=== PATIENT | male | born 2005 | race Caucasian/White ===

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

== ENCOUNTER 2025-03-15 16:21 | Emergency (ER) | payer SELFPAY ==
[2025-03-15 16:24] VITALS: BP 120/60; PULSE 100; RESP 18; TEMP 36.6; O2SAT 99; BMI 25.8
--- NOTE | 2025-03-15 16:24 | ED_ITS ---
HPI - General Adult General Chief complaint: General Medical Stated complaint: Withdrawls methadone Time Seen by Provider: 03/15/25 16:25 History of Present Illness ED Provider: Jackie Blas NP HPI narrative: 19-year-old male history of opiate use disorder, bipolar 1 currently on methadone provided by the [facility], presents to the ED for evaluation reporting withdrawal from methadone. Patient reports that his last dose was on 03/13/25. He has missed 2 doses due to lack of transportation. Reports feeling generally unwell due to lack of medication. No CP, SOB, abdominal pain, n/v/d/c, fever, chills. Related Data Home Medications ?Medication ?Instructions ?Recorded ?Confirmed methadone 10 mg/mL oral 140 mg PO DAILY 03/15/25 concentrate (Methadone Intensol) Allergies Allergy/AdvReac Type Severity Reaction Status Date / Time No Known Allergies Allergy Verified 03/15/25 16:27 Review of Systems Review of Systems: ROS is otherwise negative unless mentioned in HPI. [facility] Past Medical History Medical History (Updated 03/15/25 @ 17:22 by Jackie Blas, [facility]) Bipolar 1 disorder Social History Social History Alcohol intake: never Substance Use Type: Marijuana Do you have a plan to hurt others: No Plan Physical Exam ED Exam Exam: Nursing notes and vital signs reviewed. Constitutional: Well-appearing, NAD. Alert. Oriented X3. Eyes: EOMI. ENT: Pharynx normal. Neck: Normal inspection. Neck supple. CVS: Normal heart rate and rhythm. Pulses normal. Respiratory: No respiratory distress. Breath sounds normal. Abdomen: Nondistended. Skin: Skin warm and dry. Normal skin color. Extremities: No lower extremity edema. Neuro: Oriented X 3. No motor deficit. Vital Signs: Vital Signs - 24 hr 03/15/25 16:24 Temperature 98 F Pulse Rate 100 Respiratory Rate 18 Blood Pressure 120/60 Pulse Oximetry 99 Oxygen Delivery Method Room Air BMI result Body Mass Index 25.8 Medications Administered Discontinued Medications Generic Name Dose Route Start Last Admin Trade Name Freq PRN Reason Stop Dose Admin Methadone HCl 140 mg 03/15/25 16:39 03/15/25 17:19 Methadone Hcl 20 Mg/2 Ml Oral.Conc PO 03/15/25 16:40 140 mg ONCE ONE Administration Medical Decision Making Medical Decision Making MDM Narrative: Patient typically receives his methadone dose, which he reports as 140 mg, from the [facility]. Missed 2 doses, yesterday, today. Reports this was because he did not have transportation to the facility, and they are close on weekends. Plan to verify the dose, administer the dose, and likely discharge to home. 4:39 PM-- Dose of 140 mg was confirmed by nursing staff. I have ordered the dose here. will administer in the ED and plan for d/c. Differential Diagnosis Differential Diagnoses: The differential diagnosis associated with the presentation includes methadone w/d, methadone dosing Admission/Observation Consideration of admission/observation: Escalation of care including admission/observation considered (Not indicated) External Record Review External record reviewed: Outside ED record Discharge Plan Discharge Clinical Impression: Methadone dependence, Encounter for medication administration Patient Disposition: Home, Self-Care Instructions: Opioid Use Disorder (ED) Additional Instructions: As we discussed, you were seen in the ER today for evaluation, requesting your methadone dose. We gave you your methadone dose of 140 mg in the ER today. Please follow up with your regular methadone clinic. Return to the ER if any worsening complaints. Opiate use disorder You were seen in our Emergency Department today for treatment of opiate use disorder. You may have been dosed with medication for opiate use disorder (MOUD) in the form of suboxone or methadone. You may experience feeling some withdrawal symptoms and this is normal. The? dose in the Emergency Department is a starting dose and meant to be titrated up once you follow up with a clinic. Please do not feel discouraged, it is a process. The nurse has reviewed with you where to follow up and what information to bring with you, to continue treatment. You also may have been given naloxone (narcan) to take home with you. This medication is used to potentially treat opiate overdose. If you decide you want to stop or cut down on how much you?re using, you can call or walk into our outpatient Addiction Treatment office: [facility] (M-F 9am-5p) [address], [address] [phone] You may have been provided with safer injection?items, please take time to take care of YOU and your health. Use new supplies whenever possible to lessen the chances of infections and other illnesses.? ?If you need more supplies, please go [facility],? [address] [place], [place] you can call or text to coordinate delivery of safer supplies. You were also provided a list of several treatment providers in the area.? If you experience any worsening symptoms you cannot control please return to the ED or call 911. Please follow up at your next appointment. Things to look out for are fevers, chest pain, shortness of breath, severe pain, dizziness, fainting or any other concerns. Prescriptions: No Action methadone [Methadone Intensol] 10 mg/mL Concentrate 140 mg PO DAILY Referrals: [facility] [Provider Group, Family Practice] Print Language: French
--- NOTE | 2025-03-15 16:48 | HE.PHANOTE ---
Methadone verification form received, patient goes to [facility], dose is 140 mg and last dose was taken 03/12
[2025-03-15] MEDS: methADONE HCl 20 MG/2 ML ORAL.CONC 140 MG PO (17:19)
[2025-03-15 17:33] VITALS: BP 120/60; PULSE 100; RESP 18; TEMP 36.6; O2SAT 99
--- OUTSIDE RECORDS SUMMARY | 2025-03-15 17:38 | XMS_ITS | Encounter Summary ---
Author Organization [facility] Address [address] [place] [phone] Phone Care Team Providers Care Plans Examiner Name Role Phone Kim Carranza NP Primary Care Provider [phone] Encounter Details Date Type Department Care Team (Late st Contact Info) Description 12/16/2009 Documentation [facility] Family Medicine [address] [place] [address] Family Medicine, Physician [address] [place], [place] [id number] Social History Tobacco Use Types Packs/Day Years Used Date Smoking Tobacco: Never Assessed Sex and Gender Information Value Date Recorded Sex Assigned at Male 04/08/2020 5:12 PM EST Legal Sex Male 5:22 PM EDT Gender Identity Male 04/08/2020 5:12 PM EST Sexual Orientation Straight 12/30/2018 11 :22 AM EDT documented as of this encounter Plan of Treatment Not on file documented as of this encounter Visit Diagnoses Not on filedocumented in this encounter Care Teams Plans Examiner Relationship Specialty Start Date End Date Kim Carranza NP [address] [place] [address] PCP - General Pediatrics 08/21/24 documented as of this encounter
--- OUTSIDE RECORDS SUMMARY | 2025-03-15 17:38 | XMS_ITS | Clinical Summary ---
Author Organization [facility] Address [address] [place] [phone] Phone Care Team Providers Care Lead Section Supervisor Name Role Phone Kim Carranza NP Primary Care Provider [phone] Allergies No known active allergies Medications amphetamine-dextro amphetamine XR (Adderall XR) 15 MG 24 hr capsuleIndications :Attention deficit hyperactivity disorder (ADHD), combined type Take 1 capsule (15 mg total) by mouth every morning. 30 capsule 3 Active benzoyl peroxide 5 % gelIndications:Acn e vulgaris Apply q am 30 g 3 3 Active clindamycin 1 % gelIndications:Acn e vulgaris Apply qam 30 g 3 3 Active Ketoconazole-[place] cortisone (Pheyo) 2-2.5 % creamIndications:T inea versicolor APPLY TWICE A DAY TO SPOTS ON UPPER BACK 67.7 g 3 3 Active Active Problems Problem Noted Date Diagnosed Date Drug abuse 04/19/2022 Overview (04/19/2022): Am worried about other drug abuse ?narcotic. No track walker, pupils constricted, speech slowed. Refused to admit any drug use, refuses urine tox screen, had him see Bryan who agrees with dx but says he does not want any rx, left office immediately after. Assessment & Plan (04/19/2022 6:24 PM EST): Am very concerned, called mom because I think he is at risk for his health and safety. He refused to talk to drug counselor, mom says she is talking to his chief media officer. Mom is 100% sure he is on other drugs. Urged mom to talk to the chief media officer and DCF. Will also talk with our [facility]. Juvenile delinquency 03/29/2022 Overview (03/29/2022): Was arrested, does not say why Assessment & Plan (03/29/2022 10:02 AM EST): Court date today. Weight loss 03/29/2022 Overview (03/29/2022): From ?lack of appetite from pot use, rule out other cause of increased metabolic disease, excessive losses, Assessment & Plan (03/29/2022 10:03 AM EST): See labs. Counseled to eat three meals a day Marijuana abuse 03/29/2022 Overview (04/19/2022): Regular pot smoker, denies other drugs, denies being high here. 04/19/22: I am certain that he high here. Was nodding off. Assessment & Plan (04/19/2022 6:26 PM EST): Has used as a gateway drugs. Assessment & Plan (03/29/2022 9:09 PM EST): Counseled re motivation to decrease, said can affect attention, and will only rx adderall if will address with me and therapist here. Tinea versicolor 03/29/2022 Overview (03/29/2022): On upper back Assessment & Plan (03/29/2022 10:05 AM EST): Will prescribe ketoconozole. COVID-19 vaccine series declined 03/29/2022 Assessment & Plan (03/29/2022 10:17 AM EST): I encourage you to have him get the covid vaccine Current moderate episode of major depressive disorder without prior episode 03/29/2022 Overview (03/29/2022): Seems depressed and meets criteria for depression. Assessment & Plan (04/19/2022 6:25 PM EST): I feel is depressed as well. Is self treating with drugs. Assessment & Plan (03/29/2022 9:13 PM EST): Made warm handoff with Dr. Luna who met with patient and arranged f/u High risk sexual behavior in adolescent 03/15/20 Overview (03/17/2021): 10/2019: GC and Chlamydial infection Pt now a father, of his first child 03/2020: GC and Chlamydia +, Azithro and IM Ceftriaxone here Assessment & Plan (03/29/2022 10:02 AM EST): Now a father, should use condoms to prevent further pregnancies Psychosocial stressors 08/20/2020 Overview (03/29/2022): Active 51A- 08/20/20 Update given to Mally ward [facility] 03/02/21 Now is a single father, out of school, presently unemployed Assessment & Plan (03/29/2022 9:09 PM EST): Addressed stressors School failure 04/08/2020 Overview (04/08/2020): 04/15 - failing at least two classes and not attending virtual classes. He may go to an alternate program. Assessment & Plan (03/29/2022 9:11 PM EST): Dropped out of school Assessment & Plan (04/08/2020 4:47 PM EST): Hopefully will be referred to an alternate program. Acne vulgaris 12/30/2018 Overview (03/29/2022): 01/11 - Using benzoyl peroxide and tretinoin. On lower back Assessment & Plan (03/29/2022 9:11 PM EST): Counseled re creams for lower back. Refused influenza vaccine 12/30/2018 Overview (03/15/2021): 2017, 2018, 2019 but done 03/2020 ADHD (attention deficit hyperactivity disorder) 04/26/2015 Overview (03/15/2021): Historically managed by [facility] team - therapist and Rx prescriber Kriss Underwood, Concerta 2017, Daytrana patch 2018 Assessment & Plan (04/19/2022 6:25 PM EST): Clearly has ADHD but I can't give him adderall now that he is high. Assessment & Plan (03/29/2022 9:11 PM EST): Will restart adderall but only if: You see a therapist here and a drug counselor, and come for follow ups. Warned against diversions. Encounters Date Type Department Care Team Description 03/02/2025 Telephone [facility] - [address] [id number] Kayley Cerna LPN Discharge Follow-Up - ED from Last 3 Months Immunizations Immunization Administration Dates Next Due DTaP / Hep B / IPV 04/27/2005,01/10/2005, 005 DTaP 5 04/13/2009,04/02/2006 HPV Vaccine 9 Valent 12/28/2017,05/29/2016 Hep A, ped/adol 12/27/2006,04/02/2006 Hep B, ped/adol 2004 Hib (HbOC) 01/10/2005,2004 Hib (PRP-T) 04/27/2005 IPV 04/13/2009 Influenza, injectable, quadrivalent 04/26/2015 Influenza, injectable, quadr ivalent, preservative free 04/08/2020 Influenza, injectable, trivalent 12/27/2006,10/2006,04/27/2005 Influenza, intranasal, quadrivalent 01/22/2014,1 MMR 04/13/2009,09/05/2005 Meningococcal Conj (Menactra) MCV4P 05/29/2016 Pneumococcal Conjugate 04/27/2005,01/10/2005,10/2004 Tdap 05/29/2016 Varicella 04/13/2009,09/05/2005 Family History Medical History Relation Name Comments No Known Problems Brother phyllis No Known Problems Father haylie No Known Problems Half-Sister ena No Known Problems Mother Diabetes Other No Known Problems Sister 1 yumiko No Known Problems Sister 2 arpita Relation Name Status Comments Brother phyllis Alive Father haylie Alive Father: Unknown Half-Sister ena Alive Mother Alive Mother: Alive a nd well Other No family histo ry of Deafness, No family history of Cancer, No family history of *Heart Disease, No family history of Migraines, No family history of Diabetes mellitus, No family history of Asthma, No family history of Obesity, No family history of Hyperlipidemia, No family history of Strabismus, No family history of Developmental dislocation of hip, No family history of *CVA/Stroke, Family history of ADD/ADHD, No family history of Seizure disorder Sister 1 yumiko Alive Sister: Alive a nd well, Asthma Sister 2 arpita Alive Half sister (M) : Alive and well Social History Tobacco Use Types Packs/Day Years Used Date Smoking Tobacco: Never Smokeless Tobacco: Never Alcohol Use Standard Drinks/Week Comments No 0 (1 standard drink = 0.6 oz pur e alcohol) Hunger/Food Answer Date Recorded In the last 12 months, did y ou or your family ever eat less than you felt you should because there wasn't enough money for food? No 03/29/2022 Stable Housing Answer Date Recorded Are you worried that in the next 2 months you may not have stable housing? No 03/29/2022 Transportation Concerns Answer Date Rec orded In the last 12 months, have you or your family ever had to go without healthcare because you didn't have a way to get there? No 03/29/2022 Hazards in Home Answer Date Recorded Think about the place you li ve. Do you have problems with any of the following? Pests (mice or roaches), mold, no/not working smoke detectors, water leaks, no window guards. No 2022 Financing Utilities Answer Date Recorde d In the last 12 months, has t he electric, gas, oil, or water company threatened to shut off your services in your home? No 03/29/2022 Safety at Home Answer Date Recorded Are you or your family worried about feeling saf e in your home? No 03/29/2022 Outside Support Answer Date Recorded Do you feel that you need mo re support from other people or programs to help you care for yourself or your family? No 03/29/2022 Understanding Health Concerns Answer Da te Recorded Do you need help understandi ng your or your child's healthcare needs (diagnosis, medications, plan, etc.)? No 03/29/2022 Financing Health Concerns Answer Date R ecorded In the last 12 months, was t here a time when your child needed to see a doctor or get medications or supplies but could not because of cost? No 03/29/2022 Missing School or Work Answer Date Radu rded Did you or your child miss s chool or work because of a health problem that could have been avoided? No 03/29/2022 Sex and Gender Information Value Date Recorded Sex Assigned at Male 04/08/2020 5:12 PM EST Legal Sex Male 5:22 PM EDT Gender Identity Male 04/08/2020 5:12 PM EST Sexual Orientation Straight 12/30/2018 11 :22 AM EDT Last Filed Vital Signs Vital Sign Reading Time Taken Comments Blood Pressure 108/64 03/29/2022 9:27 AM EST Pulse 90 03/29/2022 9:27 AM EST Temperature 36.6 C (97.8 F) 04/19/2022 8:43 AM EST Respiratory Rate - - Oxygen Saturation - - Inhaled Oxygen Concentration - - Weight 72.6 kg (160 lb) 04/19/2022 8:43 AM EST Height 179.1 cm (5' 10.5 ) 03/29/2022 9:27 AM ES T Body Mass Index - - Plan of Treatment Health Maintenance Due Date Last Done Comments Men B Vaccine (1 of 2 - Standard) 2020 Meningococcal Vaccine (2 - 2-dose series) 2020 05/29/2016 HIV Screening 03/16/2022 03/16/2021, 11/18/2019 Syphilis Screening (consider for higher risk patients) 03/16/2022 03/16/2021, 11/18/2019 Chlamydia and Gonorrhea Screening 03/26/2024 03/29/2022, 03/16/2021, 02/18/2020, Additional history exists Influenza Vaccines (#1) 2024 04/08/19 21, 04/26/2015, 01/22/2014, Additional history exists COVID-19 Vaccine ( - 2024- season) 2024 DTaP,Tdap,and Td Vaccines (7 - Td or Tdap) 05/29/2026 05/29/2016, 04/13/2009, 04/02/2006, Additional history exists HIB Vaccines Aged Out 04/27/2005, 12/24, 2004 No longer eligible based on patient's age to complete this topic Hepatitis B Vaccines Completed 04/27/2005, 01/10/2005, 2004, Additional history exists Pneumococcal Vaccine Aged Out 04/27/2005, 01/10/2005, 2004 No longer eligible based on patient's age to complete this topic Hepatitis A Vaccines Completed 12/27/2006, 04/02/19 07 IPV Vaccines Completed 04/13/2009, 04/2005, 01/10/2005, Additional history exists MMR Vaccines Completed 04/13/2009, 09/05/2005 Varicella Vaccines Completed 04/13/2009, 09/05/2005 HPV Vaccines Completed 12/28/2017, 05/29/2016 Hepatitis C Screening Completed 03/16/2021, 020 Procedures * Due to [place] Tripl law, this organization might not be sharing sensitive test results. Procedure Name Priority Date/Time Associated Diagnosis Comments CHLAMYDIA AND GONORRHEA, AMPLIFIED Routine 03/29/2022 10:24 AM EST Encounter for screening examination for chlamydial infection RPR Routine 03/16/2021 12:20 PM EST High risk sexual behavior in adolescent HEPATITIS C ANTIBODY WITH REFLEX TO HCV, RNA, QUANT, RT PCR Routine 03/16/2021 12:20 PM EST High risk sexual behavior in adolescent from Last 3 Months or Most Recently Relevant to Health Maintenance Results * Due to [place] law, this organization might not be sharing sensitive test results. * (ABNORMAL) Chlamydia and Gonorrhoea, Amplified (03/29/2022 10:24 AM EST) Chlamydia Trachomatis, DNA Probe POSITIVE( A) (NEG) [facility] Comment: Chlamydia Trachomatis RNA detected in this patient's sample (REFERENCE RANGE/NORMAL VALUE: NOT DETECTED) Result reported to the [facility]. Note: This test uses lodge officer- mediated amplification method to detect rRNA from C. Trachomatis URINE GC AMP PROBE POSITIVE( A) (NEG) [facility] Comment: Neisseria Gonorrhoeae RNA detected in this patient's sample (REFERENCE RANGE/NORMAL VALUE: NOT DETECTED) Result reported to the [facility]. NOTE: This test uses lodge officer-mediated amplification method to detect rRNA from N.Gonorrhoeae. A negative result does not preclude infection. In the case of a negative urine result, testing of an endocervical(female) or urethral (male) specimen is recommended if there is high clinical suspicion of infection. Due to very high sensitivity of Nucleic Acid Amplification Test, false positive results may occur. Therefore, specimen handling is extremely important. In patients in whom the disease is unlikely, additional sample for testing should be considered after an initial positive result. The performance characteristics of this test have not been evaluated in children. The Aptima Combo2 assay is not intended for the evaluation of suspected sexual abuse or for other medico-legal indications. The ordering provider should assess if the patient had consensual sex without risk of sexual abuse. Consult the [facility] if needed. Contact phone number . Therapeutic failure or success cannot be determined with the Aptima Combo2 assay since nucleic acid may persist following appropriate antimicrobial therapy. The Centers for Disease Control and Prevention (CDC) recommends confirmatory retesting using culture or a different nucleic acid amplification test when positive results occur, if indicated. Testing performed or reported by [facility], a Service of [facility], [address], [place] [address] Pedro Carlson MD, Real Estate Sales Supervisor [facility]# [id number] Urine (Urine) 03/29/2022 10: 24 AM EST 03/30/2022 9:04 AM EST us Raffi Willams MD LAB MICROBIOLOGY - GENERAL OR DERABLES Final Result [facility] * Hepatitis C Antibody (03/16/2021 12:20 PM EST) Hepatitis C Ab Interpretation NEGATIVE (NEG) [facility] Comment: Reference range: Negative This test was performed on the [employer] Worker immunoassay system. Testing performed or reported by [facility], a Service of [facility], [facility] [place] [address] Pedro Carlson MD, Real Estate Sales Supervisor [facility]# [id number] Blood 03/16/2021 12:2 0 PM EST 03/16/2021 12:26 PM EST Ena Benson MD LAB BLOOD ORDERABLES Final Re sult Performing Organization Address [facility] Number [facility] * RPR (03/16/2021 12:20 PM EST) Pathologist [facility] SYPHILIS SCREEN BY DOROTEO NEGATIVE (NEG) [facility] Comment: Reference range: Negative This test was performed on the [employer] Worker immunoassay system. RPR Titer NOT INDICATED [facility] T pallidum Antibodies (TP-PA) NOT INDICATED [facility] SYPHILIS INTERPRETATION Indicative of the absence of infection with Treponemal pallidum. Test may be negative in cases of incubating or early primary syphilis. Consider repeat testing in several weeks if clinical suspicion is high. [facility] Comment: Testing performed or reported by [facility], a Service of [facility], [address] [place] [address] Pedro Carlson MD, Real Estate Sales Supervisor [facility]# [id number] Blood (Blood, Venous) 03/16/2021 12:20 PM EST 03/16/2021 12:26 PM EST Ena Benson MD LAB BLOOD ORDERABLES Final Re sult Performing Organization Address [facility] de Phone Number [facility] from Last 3 Months or Most Recently Relevant to Health Maintenance Insurance [facility] [place] [id number] [facility] [place] [address] Care Teams Lead Section Supervisor Relationship Specialty Start Date End Date Kim Carranza NP [address] [place] [address] PCP - General Pediatrics 08/21/24
--- OUTSIDE RECORDS SUMMARY | 2025-03-15 17:38 | XMS_ITS | Clinical Summary ---
Author Organization [employer] [facility] it Address [address] [place] [address] Care Team Providers Care Post Graduate Intern Name Role Phone Unavailable Primary Care Provider Unavailabl e Social History Tobacco Use Types Packs/Day Years Used Date Smoking Tobacco: Never Assessed Sex and Gender Information Value Date Recorded Sex Assigned at Not on file Legal Sex Male 9:10 PM EST Gender Identity Not on file Sexual Orientation Not on file Plan of Treatment Health Maintenance Due Date Last Done Comments Varicella Vaccines (1 of 2 - 13+ 2-dose series) 2017 HPV Vaccines (1 - Male 3-dos e series) 08/27/2019 Meningococcal B Vaccine (1 o f 2 - Standard) 2020 Annual Well Child Visit (3-2 1 years old) 04/20/2023 HIV Screening 04/20/2023 Hepatitis C Screening 04/20/2023 Social Influencers of Health Screening 04/20/2023 DTaP,Tdap,and Td Vaccines (1 - Tdap) 08/27/2023 Hepatitis B Vaccines (1 of 3 - 19+ 3-dose series) 08/27/2023 Depression Screening 03/26/2024 COVID-19 Vaccine (1 - 2024-2 6 season) 2024 Influenza Vaccine (#1) 2024 RSV Immunization Adult Patie nts (1 - 1-dose 75+ series) 08/27/2079 HIB Vaccines Aged Out No longer eligi ble based on patient's age to complete this topic Hepatitis A Vaccines Aged Out No long er eligible based on patient's age to complete this topic IPV Vaccines Aged Out No longer eligi ble based on patient's age to complete this topic MMR Vaccines Aged Out No longer eligi ble based on patient's age to complete this topic Meningococcal ACWY Vaccine Aged Out N o longer eligible based on patient's age to complete this topic Pneumococcal Vaccine: Pediat rics (0 to 5 Years) and At-Risk Patients (6 to 49 Years) Aged Out No longer eligible b ased on patient's age to complete this topic RSV Immunization Patients Un jyoti 20 months Aged Out No longer eligible b ased on patient's age to complete this topic
--- OUTSIDE RECORDS SUMMARY | 2025-03-15 17:38 | XMS_ITS | Encounter Summary ---
Author Organization [facility] Address [address] [place] [id number] Phone Care Team Providers Care Head Bellhop Captain Name Role Phone Kim Carranza NP Primary Care Provider [phone] Encounter Details Date Type Department Care Team (Late st Contact Info) Description 11/09/2016 Conversion Encounter [facility] [address] [place] [address] Social History Tobacco Use Types Packs/Day Years [...] on filedocumented in this encounter Care Teams Head Bellhop Captain Relationship Specialty Start Date End Date Kim Carranza NP [address] [place] [address] PCP - General Pediatrics 08/21/24 documented as of this encounter
--- OUTSIDE RECORDS SUMMARY | 2025-03-15 17:38 | XMS_ITS | Encounter Summary ---
Author Organization [facility] Address [address] [place] [address] Phone Care Team Providers Care School Photographer Name Role Phone Kim Carranza NP Primary Care Provider [phone] Encounter Details Date Type Department Care Team (Late st Contact Info) Description 12/16/2009 Documentation [facility] Family Medicine [address] [place] [address] Family Medicine, Physician [address] [place], [place] [id number] Social History Tobacco Use Types Packs/Day Years [...] on filedocumented in this encounter Care Teams School Photographer Relationship Specialty Start Date End Date Kim Carranza NP [address] [place] [address] PCP - General Pediatrics 08/21/24 documented as of this encounter
== END 2025-03-15 17:47 | disposition home or self-care (01) ==
LOC: HO.ED 17:35
PROVIDERS: Emergency Provider Emergency Medicine
DX: F11.20 Opioid dependence, uncomplicated (principal); R11.2 Nausea with vomiting, unspecified
CPT/HCPCS: 99282; 99283

== ENCOUNTER 2025-03-16 17:29 | Emergency (ER) | payer SELFPAY ==
[2025-03-16 18:00] VITALS: BP 120/56; PULSE 68; RESP 18; TEMP 36.6; O2SAT 98; BMI 25.8
--- NOTE | 2025-03-16 18:04 | ED.GENADULT ---
HPI - General Adult General Chief complaint: General Medical Stated complaint: methadone withdrawal Time Seen by Provider: 03/16/25 18:03 Source: patient Mode of arrival: ambulatory Limitations: no limitations History of Present Illness ED Provider: Julius Abarca HPI narrative: 19 yold male presents to the ED for methadone . Patient states she missed his mehthadone appointment due to lack of tranpsortations. patient received mehtadone dose in the ED yesterday. Patient states no complaints Related Data Home Medications ?Medication ?Instructions ?Recorded ?Confirmed methadone 10 mg/mL oral 140 mg PO DAILY 03/15/25 03/15/25 concentrate (Methadone Intensol) Previous Rx's ?Medication ?Instructions ?Recorded cephalexin 500 mg capsule 500 mg PO QID 7 days #28 caps 03/17/25 doxycycline hyclate 100 mg capsule 100 mg PO BID #14 caps 03/17/25 mupirocin 2 % topical ointment 1 appl topical TID 7 days #22 grams 03/17/25 (Centany) naproxen 500 mg tablet 500 mg PO BID PRN pain #14 tabs 03/17/25 Allergies Allergy/AdvReac Type Severity Reaction Status Date / Time No Known Allergies Allergy Verified 03/17/25 13:23 Review of Systems Review of Systems: none Yes all other systems are reviewed and are negative PMFSH Past Medical History Medical History (Updated 03/18/25 @ 00:01 by Winsome Pack) Bipolar 1 disorder Social History Social History Alcohol intake: never Substance Use Type: Marijuana Advance Directives: No Advance Directives Information Provided: Yes Do you have a plan to hurt others: No Plan Physical Exam ED Vital Signs: Vital Signs - 24 hr 03/16/25 18:00 Temperature 98 F Pulse Rate 68 Respiratory Rate 18 Blood Pressure 120/56 L Pulse Oximetry 98 Oxygen Delivery Method Room Air BMI result Body Mass Index 25.8 Const General: cooperative, healthy appearing, comfortable, no acute distress, well developed, alert, awake and Physically active Orientation/consciousness: patient oriented x3 HENMT Head: Yes normal to inspection, Yes No palpable skull fracture present, Yes normocephalic and Yes atraumatic Eyes General: appearance normal, both eyes and all related structures Neck Neck: Yes normal visual inspection, Yes full ROM, Yes no lymphadenopathy, Yes no meningeal signs, Yes trachea midline, Yes supple, No anterior neck swelling and No tender Chest Chest palpation & inspection: normal inspection of the chest and normal palpation of entire chest wall Resp Effort & Inspection: normal respiratory effort and able to speak in complete sentences Auscultation: clear to auscultation bilaterally Cardio Jugular venous distension: no JVD Heart sounds: S1 normal heart sound present and S2 normal heart sound present GI Inspection: Yes normal to inspection Palpation (GI): Soft to palpation, not firm, nontender, no guarding and not rigid General: Yes no CVA tenderness Back/Spine/Pelvis Back: no CVA tenderness and No back tenderness Skin General skin exam: no rashes or lesions noted, elasticity normal and turgor normal Neuro General: patient oriented x3, gait normal, tone normal, moves all extremities, Normal light touch and pain sensation, no meningeal signs, no focal motor deficits, CN's II-XI intact bilaterally and normal sensation to monofilament Extrem General: Yes normal to inspection, Yes full ROM and Yes capillary refill normal Psych Appearance: grossly normal, well kempt and not disheveled Medications Administered Discontinued Medications Generic Name Dose Route Start Last Admin Trade Name Freq PRN Reason Stop Dose Admin Methadone HCl 140 mg 03/16/25 18:03 03/16/25 18:17 Methadone Hcl 20 Mg/2 Ml Oral.Conc PO 03/16/25 18:04 140 mg ONCE ONE Administration Medical Decision Making Medical Decision Making [facility] Narrative: 19 yold male presents to the ED methadone. patient states no compalints. Differential Diagnosis Differential Diagnoses: The differential diagnosis associated with the presentation includes Independent Historian Clinical information obtained from an independent historian. History obtained from or confirmed by: Other (patient) Prescription Management I considered prescription management with: Pain Medication Discharge Plan Discharge Clinical Impression: Medication refill Patient Disposition: Home, Self-Care Instructions: Medicine Refill (ED) Additional Instructions: Opiate use disorder You were seen in our Emergency Department today for treatment of opiate use disorder. You may have been dosed with medication for opiate use disorder (MOUD) in the form of suboxone or methadone. You may experience feeling some withdrawal symptoms and this is normal. The? dose in the Emergency Department is a starting dose and meant to be titrated up once you follow up with a clinic. Please do not feel discouraged, it is a process. The nurse has reviewed with you where to follow up and what information to bring with you, to continue treatment. You also may have been given naloxone (narcan) to take home with you. This medication is used to potentially treat opiate overdose. If you decide you want to stop or cut down on how much you?re using, you can call or walk into our outpatient Addiction Treatment office: [facility] (M-F 9am-5p) [address], [address] [phone] You may have been provided with safer injection?items, please take time to take care of YOU and your health. Use new supplies whenever possible to lessen the chances of infections and other illnesses.? ?If you need more supplies, please go [facility],? [address] [place] [address] OR you can call or text to coordinate delivery of safer supplies. You were also provided a list of several treatment providers in the area.? If you experience any worsening symptoms you cannot control please return to the ED or call 911. Please follow up at your next appointment. Things to look out for are fevers, chest pain, shortness of breath, severe pain, dizziness, fainting or any other concerns. Return to the ED for any complaints Prescriptions: No Action methadone [Methadone Intensol] 10 mg/mL Concentrate 140 mg PO DAILY mupirocin [Centany] 2 % ointment 1 appl topical TID 7 Days Qty: 22 0RF cephalexin 500 mg capsule 500 mg PO QID 7 Days Qty: 28 0RF doxycycline hyclate 100 mg capsule 100 mg PO BID Qty: 14 0RF naproxen 500 mg tablet 500 mg PO BID PRN (Reason: pain) Qty: 14 0RF Interventions: ED Discharge Assessment Last Done: 03/16/25 18:40 Discharge Date/Time: 03/16/25 18:40 Print Language: Martiniquais
[2025-03-16] MEDS: methADONE HCl 20 MG/2 ML ORAL.CONC 140 MG PO (18:17)
[2025-03-16 18:40] VITALS: BP 120/56; PULSE 68; RESP 18; TEMP 36.6; O2SAT 98
--- OUTSIDE RECORDS SUMMARY | 2025-03-16 19:04 | XMS_ITS | Clinical Summary ---
Author Organization [facility] it Address [address] [place] [address] Care Team Providers Care Reporter Anchor Name Role Phone Unavailable Primary Care Provider [...]
--- OUTSIDE RECORDS SUMMARY | 2025-03-16 19:04 | XMS_ITS | Clinical Summary ---
Author Organization [facility] Address [address] [place] [address] Phone Care Team Providers Care Technician Name Role Phone Kim Carranza NP Primary Care Provider [phone] Allergies No known active allergies Medications amphetamine-dextro [...] Apply qam 30 g 3 3 Active Ketoconazole-[place] cortisone (Pheyo) 2-2.5 % creamIndications:T inea versicolor [...] mom says she is talking to his security patrol officer. Mom is 100% sure he is on other drugs. Urged mom to talk to the security patrol officer and DCF. Will also talk with [...] 51A- 08/20/20 Update given to Mally ward [facility] 03/02/21 Now is a single father, [...] disorder) 04/26/2015 Overview (03/15/2021): Historically managed by [facility] team - therapist and Rx prescriber [...] Type Department Care Team Description 03/02/2025 Telephone [facility] - [address] [id number] Kayley Cerna LPN Discharge Follow-Up - ED [...] 020 Procedures * Due to [place] law, this organization might not be sharing [...] Maintenance Results * Due to [place] law, this organization might not be sharing sensitive test results. * (ABNORMAL) Chlamydia and Gonorrhoea, Amplified (03/29/2022 10:24 AM EST) Chlamydia Trachomatis, DNA Probe POSITIVE( A) (NEG) [facility] Comment: Chlamydia Trachomatis RNA detected in this patient's sample (REFERENCE RANGE/NORMAL VALUE: NOT DETECTED) Result reported to the [facility]. Note: This test uses stapling machine operator- mediated amplification method to detect rRNA from C. Trachomatis URINE GC AMP PROBE POSITIVE( A) (NEG) [facility] Comment: Neisseria Gonorrhoeae RNA detected in this patient's sample (REFERENCE RANGE/NORMAL VALUE: NOT DETECTED) Result reported to the [facility]. NOTE: This test uses stapling machine operator-mediated amplification method to detect rRNA from N.Gonorrhoeae. [...] without risk of sexual abuse. Consult the [facility] if needed. Contact phone number . Therapeutic failure or success cannot be determined with the Aptima Combo2 assay since nucleic acid may persist following appropriate antimicrobial therapy. The Centers for Disease Control and Prevention (CDC) recommends confirmatory retesting using culture or a different nucleic acid amplification test when positive results occur, if indicated. Testing performed or reported by [facility], a Service of [facility], [address], [place] [address] Pedro Carlson MD, C D Stripper [facility]# [id number] Urine (Urine) 03/29/2022 10: 24 AM EST 03/30/2022 9:04 AM EST us Raffi Willams MD LAB MICROBIOLOGY - GENERAL OR DERABLES Final Result [facility] * Hepatitis C Antibody (03/16/2021 12:20 PM EST) Hepatitis C Ab Interpretation NEGATIVE (NEG) [facility] Comment: Reference range: Negative This test was performed on the [employer] immunoassay system. Testing performed or reported by [facility], a Service of [facility], [facility] [place] [address] Pedro Carlson MD, C D [facility]# [id number] Blood 03/16/2021 12:2 0 PM EST 03/16/2021 12:26 PM EST Ena Benson MD LAB BLOOD ORDERABLES Final Re sult Performing Organization Address [facility] Number [facility] * RPR (03/16/2021 12:20 PM EST) Pathologist [facility] SYPHILIS SCREEN BY DOROTEO NEGATIVE (NEG) [facility] Comment: Reference range: Negative This test was performed on the [employer] immunoassay system. RPR Titer NOT INDICATED [facility] T pallidum Antibodies (TP-PA) NOT INDICATED [facility] SYPHILIS INTERPRETATION Indicative of the absence of infection with Treponemal pallidum. Test may be negative in cases of incubating or early primary syphilis. Consider repeat testing in several weeks if clinical suspicion is high. [facility] Comment: Testing performed or reported by [facility], a Service of [facility], [address] [place] [address] Pedro Carlson MD, C D [facility]# [id number] Blood (Blood, Venous) 03/16/2021 12:20 PM EST 03/16/2021 12:26 PM EST Ena Benson MD LAB BLOOD ORDERABLES Final Re sult Performing Organization Address [facility] de Phone Number [facility] from Last 3 Months or Most Recently Relevant to Health Maintenance Insurance [facility] [place] [address] [facility] [place] [id number] Care Teams Technician Relationship Specialty Start Date End Date Kim Carranza NP [address] [place] [address] PCP - General Pediatrics 08/21/24
--- OUTSIDE RECORDS SUMMARY | 2025-03-16 19:04 | XMS_ITS | Encounter Summary ---
Author Organization [facility] Address [address] [place] [address] Phone Care Team Providers Care Lactation Consultant Name Role Phone Kim Carranza NP Primary Care Provider [phone] Encounter Details Date Type Department Care Team (Late st Contact Info) Description 11/09/2016 Conversion Encounter [facility] [address] [place] [address] Social History Tobacco Use Types Packs/Day Years [...] on filedocumented in this encounter Care Teams Lactation Consultant Relationship Specialty Start Date End Date Kim Carranza NP [address] [place] [address] PCP - General Pediatrics 08/21/24 documented as of this encounter
--- OUTSIDE RECORDS SUMMARY | 2025-03-16 19:04 | XMS_ITS | Encounter Summary ---
Author Organization [facility] Address [address] [place] [address] Phone Care Team Providers Care Process Improvement Manager Name Role Phone Kim Carranza NP Primary Care Provider Encounter Details Date Type Department Care Team (Late st Contact Info) Description 12/16/2009 Documentation [facility] Family Medicine [address] [place] [address] Family Medicine, Physician [address] [place], [place] [id number] Social History Tobacco Use Types Packs/Day Years [...] on filedocumented in this encounter Care Teams Process Improvement Manager Relationship Specialty Start Date End Date Kim Carranza NP [address] [place] [address] PCP - General Pediatrics 08/21/24 documented as of this encounter
--- OUTSIDE RECORDS SUMMARY | 2025-03-16 19:04 | XMS_ITS | Encounter Summary ---
Author Organization [facility] Address [address] [place] [address] Phone Care Team Providers Care Qa Auditor Name Role Phone Kim Carranza NP Primary Care Provider Encounter Details Date Type Department Care Team (Late st Contact Info) Description 12/16/2009 Documentation [facility] Family Medicine [address] [place] [address] Family Medicine, Physician [address] [place], [place] [id number] Social History Tobacco Use Types Packs/Day Years [...] on filedocumented in this encounter Care Teams Qa Auditor Relationship Specialty Start Date End Date Kim Carranza NP [address] [place] [address] PCP - General Pediatrics 08/21/24 documented as of this encounter
== END 2025-03-16 18:40 | disposition home or self-care (01) ==
PROVIDERS: Emergency Provider Emergency Medicine Emergency Medical Services
DX: F11.23 Opioid dependence with withdrawal (principal); Z79.899 Other long term (current) drug therapy; Z76.0 Encounter for issue of repeat prescription
CPT/HCPCS: 99282; 99283

== ENCOUNTER 2025-03-17 13:13 | Emergency (ER) | payer SELFPAY ==
[2025-03-17 13:19] VITALS: BP 132/71; PULSE 99; RESP 16; TEMP 36.6; O2SAT 96; BMI 23.8
--- NOTE | 2025-03-17 13:25 | ED.GENADULT ---
HPI - General Adult General Chief complaint: Skin/Abscess/Foreign Body Stated complaint: Infection On Check, Methadone Withdraws Time Seen by Provider: 03/17/25 13:25 Source: patient Mode of arrival: ambulatory Limitations: no limitations History of Present Illness ED Provider: Julius Abarca HPI narrative: 19 yold male presents with pmh of opoid abuse presents to the ED for methadone 140mg dose. patient unable to get to the clinic today due to lack of transportation. Secondary complaint is left lower jaw pimple Related Data Home Medications ?Medication ?Instructions ?Recorded ?Confirmed methadone 10 mg/mL oral 140 mg PO DAILY 03/15/25 03/15/25 concentrate (Methadone Intensol) Previous Rx's ?Medication ?Instructions ?Recorded cephalexin 500 mg capsule 500 mg PO QID 7 days #28 caps 03/17/25 doxycycline hyclate 100 mg capsule 100 mg PO BID #14 caps 03/17/25 mupirocin 2 % topical ointment 1 appl topical TID 7 days #22 grams 03/17/25 (Centany) naproxen 500 mg tablet 500 mg PO BID PRN pain #14 tabs 03/17/25 Allergies Allergy/AdvReac Type Severity Reaction Status Date / Time No Known Allergies Allergy Verified 03/17/25 13:23 Review of Systems Review of Systems: mehtaonde. left lower jaw pimple/mass Yes all other systems are reviewed and are negative [facility] Past Medical History Medical History (Updated 03/18/25 @ 00:01 by Winsome Pack) Bipolar 1 disorder Social History Social History Alcohol intake: never Substance Use Type: Marijuana Advance Directives: No Advance Directives Information Provided: Yes Do you have a plan to hurt others: No Plan Physical Exam ED Vital Signs: Vital Signs - 24 hr 03/17/25 13:19 Temperature 97.9 F Pulse Rate 99 Respiratory Rate 16 Blood Pressure 132/71 Pulse Oximetry 96 Oxygen Delivery Method Room Air BMI result Body Mass Index 23.8 Const General: cooperative, healthy appearing, comfortable, no acute distress, well developed, alert, awake and Physically active Orientation/consciousness: patient oriented x3 HENMT Head: Yes normal to inspection, Yes No palpable skull fracture present and Yes normocephalic Ears: hearing grossly normal bilaterally, external ears normal, TM's normal bilaterally, TM normal on the right, TM normal on the left, EAC's normal, mastoids normal and no periauricular adenopathy Face images:  1. small areea of erythema, with small nonfluctulant mass that is tender. Negative for pus discharge or foul odor. Negative for neck swelling or drooling. Throat: Yes posterior oropharynx normal, Yes tonsils normal and Yes uvula midline Eyes General: appearance normal, both eyes and all related structures Neck Neck: Yes normal visual inspection, Yes full ROM, Yes no lymphadenopathy, Yes no meningeal signs, Yes trachea midline, Yes supple, No anterior neck swelling and No tender Chest Chest palpation & inspection: normal inspection of the chest and normal palpation of entire chest wall Resp Effort & Inspection: normal respiratory effort and able to speak in complete sentences Auscultation: clear to auscultation bilaterally Cardio Jugular venous distension: no JVD Heart sounds: S1 normal heart sound present and S2 normal heart sound present GI Inspection: Yes normal to inspection Palpation (GI): Soft to palpation, not firm, nontender, no guarding and not rigid General: Yes no CVA tenderness Back/Spine/Pelvis Back: no CVA tenderness and No back tenderness Skin General skin exam: no rashes or lesions noted, elasticity normal and turgor normal Neuro General: patient oriented x3, gait normal, tone normal, moves all extremities, Normal light touch and pain sensation, no meningeal signs, no focal motor deficits, CN's II-XI intact bilaterally and normal sensation to monofilament Extrem General: Yes normal to inspection, Yes full ROM and Yes capillary refill normal Psych Appearance: grossly normal, well kempt and not disheveled Course Course Course Narrative: RME; 19 yold male presents to the ED for methodone refill. Patient missed his dose due to lack of transportaion. Patient also states small pimple on left lower jaw. Negative for any neck swelling or drooling. Exam indicated for this colitis Medications Administered Discontinued Medications Generic Name Dose Route Start Last Admin Trade Name Freq PRN Reason Stop Dose Admin Methadone HCl 140 mg 03/17/25 13:25 03/17/25 14:43 Methadone Hcl 20 Mg/2 Ml Oral.Conc PO 03/17/25 13:26 140 mg ONCE ONE Administration Medical Decision Making Medical Decision Making MDM Narrative: 19-year-old male presents to ED for methadone use and small left jaw skin infection. Patient given methadone dose. Patient states importance of calling myself to restart his insurance so she can have transport to go to his methadone clinic. Patient will be discharged antibiotics for early folliculitis small abscess. No indication not ready for incision drainage. Patient explained worrisome signs. not suspecting peritonsillar abscess, belinda agnina, retropharyngeal abscess, or any other life threatening etiology. Differential Diagnosis Differential Diagnoses: The differential diagnosis associated with the presentation includes (methadone, cellullitits, abscess) Admission/Observation Consideration of admission/observation: Escalation of care including admission/observation considered Independent Historian Clinical information obtained from an independent historian. History obtained from or confirmed by: Other (patient) Prescription Management I considered prescription management with: Pain Medication Discharge Plan Discharge Clinical Impression: Medication refill, Folliculitis, Abscess of skin or subcutaneous tissue Patient Disposition: Home, Self-Care Instructions: Folliculitis (ED), Abscess (ED), Medicine Refill (ED) Additional Instructions: Recommend follow-up with primary care provider. Recommend warm compress 4 times a day for 15 minutes or left side of face on area of redness. Return to the ED immediately for any fever, chills, neck swelling, drooling, change in voice, facial swelling, headache, dizziness, chest pain, shortness of breath, or any other concerning symptoms. Prescriptions: New mupirocin [Centany] 2 % ointment 1 appl topical TID 7 Days Qty: 22 0RF cephalexin 500 mg capsule 500 mg PO QID 7 Days Qty: 28 0RF doxycycline hyclate 100 mg capsule 100 mg PO BID Qty: 14 0RF naproxen 500 mg tablet 500 mg PO BID PRN (Reason: pain) Qty: 14 0RF No Action methadone [Methadone Intensol] 10 mg/mL Concentrate 140 mg PO DAILY Stand Alone Forms: Work/School Release Interventions: ED Discharge Assessment Last Done: 03/17/25 15:07 Discharge Date/Time: 03/17/25 15:07 Print Language: Bolivian
[2025-03-17] MEDS: methADONE HCl 20 MG/2 ML ORAL.CONC 140 MG PO (14:43)
[2025-03-17 15:07] VITALS: BP 132/71; PULSE 99; RESP 16; TEMP 36.6; O2SAT 96
--- OUTSIDE RECORDS SUMMARY | 2025-03-17 16:09 | XMS_ITS | Encounter Summary ---
Author Organization [facility] Address [address] [place] [address] Phone Care Team Providers Care Pitch Filler Name Role Phone Kim Carranza NP Primary Care Provider [phone] Encounter Details Date Type Department Care Team (Late st Contact Info) Description 12/16/2009 Documentation [facility] Medicine [address] [place] [address] Family Medicine, Physician [address] [place], [place] [phone] Social History Tobacco Use Types Packs/Day Years [...] on filedocumented in this encounter Care Teams Pitch Filler Relationship Specialty Start Date End Date Kim Carranza NP [address] [place] [address] PCP - General Pediatrics 08/21/24 documented as of this encounter
--- OUTSIDE RECORDS SUMMARY | 2025-03-17 16:09 | XMS_ITS | Encounter Summary ---
Author Organization [facility] Address [address] [place] [address] Phone Care Team Providers Care Fence Post Cutter Name Role Phone Kim Carranza NP Primary Care Provider [phone] Encounter Details Date Type Department Care Team (Late st Contact Info) Description 11/09/2016 Conversion Encounter [facility] [address] [place] [address] Social History Tobacco Use Types Packs/Day Years [...] on filedocumented in this encounter Care Teams Fence Post Cutter Relationship Specialty Start Date End Date Kim Carranza NP [address] [place] [address] PCP - General Pediatrics 08/21/24 documented as of this encounter
--- OUTSIDE RECORDS SUMMARY | 2025-03-17 16:09 | XMS_ITS | Encounter Summary ---
Author Organization [facility] Address [address] [place] [address] Phone Care Team Providers Care Trimmer Operator Three Knife Name Role Phone Kim Carranza NP Primary Care Provider [phone] Encounter Details Date Type Department Care Team (Late st Contact Info) Description 12/16/2009 Documentation [facility] Family Medicine [address] [place] [address] Family Medicine, Physician [address] [place], [place] [phone] Social History Tobacco Use Types Packs/Day Years [...] on filedocumented in this encounter Care Teams Trimmer Operator Three Knife Relationship Specialty Start Date End Date Kim Carranza NP [address] [place] [address] PCP - General Pediatrics 08/21/24 documented as of this encounter
--- OUTSIDE RECORDS SUMMARY | 2025-03-17 16:09 | XMS_ITS | Clinical Summary ---
Author Organization [facility] it Address [address] [place] [address] Care Team Providers Care Pipe Fitter Supervisor Name Role Phone Unavailable Primary Care Provider [...]
--- OUTSIDE RECORDS SUMMARY | 2025-03-17 16:09 | XMS_ITS | Clinical Summary ---
Author Organization [facility] Address [address] [place] [id number] Phone Care Team Providers Care Office Machine Mechanic Name Role Phone Kim Carranza NP Primary Care Provider [phone] Allergies No known active allergies Medications amphetamine-dextro [...] Apply qam 30 g 3 3 Active Ketoconazole-[place] cortisone (Pheyo) 2-2.5 % creamIndications:T inea versicolor [...] mom says she is talking to his chemistry technical officer. Mom is 100% sure he is on other drugs. Urged mom to talk to the chemistry technical officer and DCF. Will also talk with [...] 08/20/20 Update given to Mally ward [facility] 03/02/21 Now is a single father, [...] disorder) 04/26/2015 Overview (03/15/2021): Historically managed by [facility] team - therapist and Rx prescriber Kriss [...] Type Department Care Team Description 03/02/2025 Telephone [place] [facility] - [address] [id number] Kayley Cerna LPN Discharge Follow-Up - ED [...] Completed 03/16/2021, 020 Procedures * Due to [place] [employer] law, this organization might not be sharing [...] to Health Maintenance Results * Due to [place] [employer] law, this organization might not be sharing sensitive test results. * (ABNORMAL) Chlamydia and Gonorrhoea, Amplified (03/29/2022 10:24 AM EST) Chlamydia Trachomatis, DNA Probe POSITIVE( A) (NEG) [facility] Comment: Chlamydia Trachomatis RNA detected in this patient's sample (REFERENCE RANGE/NORMAL VALUE: NOT DETECTED) Result reported to the [facility]. Note: This test uses value stream manager- mediated amplification method to detect rRNA from C. Trachomatis URINE GC AMP PROBE POSITIVE( A) (NEG) [facility] Comment: Neisseria Gonorrhoeae RNA detected in this patient's sample (REFERENCE RANGE/NORMAL VALUE: NOT DETECTED) Result reported to the [facility]. NOTE: This test uses value stream manager-mediated amplification method to detect rRNA from N.Gonorrhoeae. [...] without risk of sexual abuse. Consult the [facility] if needed. Contact phone number . Therapeutic failure or success cannot be determined with the Aptima Combo2 assay since nucleic acid may persist following appropriate antimicrobial therapy. The Centers for Disease Control and Prevention (CDC) recommends confirmatory retesting using culture or a different nucleic acid amplification test when positive results occur, if indicated. Testing performed or reported by [facility], a Service of [facility], [address], [place] [address] Pedro Carlson MD, Looping Machine Operator [facility]# [id number] Urine (Urine) 03/29/2022 10: 24 AM EST 03/30/2022 9:04 AM EST us Raffi Willams MD LAB MICROBIOLOGY - GENERAL OR DERABLES Final Result [facility] * Hepatitis C Antibody (03/16/2021 12:20 PM EST) Hepatitis C Ab Interpretation NEGATIVE (NEG) [facility] Comment: Reference range: Negative This test was performed on the Gerard Licensed Clinical Social Worker immunoassay system. Testing performed or reported by [facility], a Service of [facility], [facility] [place] [address] Pedro Carlson MD, Looping Machine Operator [facility]# [id number] Blood 03/16/2021 12:2 0 PM EST 03/16/2021 12:26 PM EST Ena Benson MD LAB BLOOD ORDERABLES Final Re sult Performing Organization Address [facility] Number [facility] * RPR (03/16/2021 12:20 PM EST) Pathologist [facility] SYPHILIS SCREEN BY DOROTEO NEGATIVE (NEG) [facility] Comment: Reference range: Negative This test was performed on the Gerard Licensed Clinical Social Worker immunoassay system. RPR Titer NOT INDICATED [facility] T pallidum Antibodies (TP-PA) NOT INDICATED [facility] SYPHILIS INTERPRETATION Indicative of the absence of infection with Treponemal pallidum. Test may be negative in cases of incubating or early primary syphilis. Consider repeat testing in several weeks if clinical suspicion is high. [facility] Comment: Testing performed or reported by [facility], a Service of [facility], [address] [place] [address] Pedro Carlson MD, Looping Machine Operator [facility]# [id number] Blood (Blood, Venous) 03/16/2021 12:20 PM EST 03/16/2021 12:26 PM EST Ena Benson MD LAB BLOOD ORDERABLES Final Re sult Performing Organization Address [facility] de Phone Number [facility] from Last 3 Months or Most Recently Relevant to Health Maintenance Insurance [facility] [place] [id number] [facility] [place] [address] Care Teams Office Machine Mechanic Relationship Specialty Start Date End Date Kim Carranza NP [address] [place] [address] PCP - General Pediatrics 08/21/24
== END 2025-03-17 15:07 | disposition home or self-care (01) ==
PROVIDERS: Emergency Provider Emergency Medicine
DX: L73.9 Follicular disorder, unspecified (principal)
CPT/HCPCS: 99282; 99283

== ENCOUNTER 2025-03-20 07:03 | Emergency (ER) | payer SELFPAY ==
[2025-03-20 07:34] VITALS: BP 125/73; PULSE 75; RESP 16; TEMP 36.6; O2SAT 100; BMI 28.1
--- NOTE | 2025-03-20 07:41 | ED_ITS ---
HPI - General Adult General Chief complaint: General Medical Stated complaint: methadone withdrawals Time Seen by Provider: 03/20/25 07:41 Source: patient Mode of arrival: ambulatory Limitations: no limitations History of Present Illness ED Provider: Daya Puckett PA-C HPI narrative: Patient is a 19 year old male with a history of opiate use disorder, on methadone, presenting to the emergency department today for his methadone dose. Patient states that he came here on 03/15 + 03/16 + 03/17 for his methadone dose. Patient states that he knew he couldn't come more than 3 days in a row so he skipped his dose entirely to reset his 3 days in a row. Patient states that he is established with a clinic but he has transportation issues getting there and the [place] location is always busy . He states it is easier for him to utilize the ER for his dosing instead. Patient denies any complaints at this time. Related Data Home Medications ?Medication ?Instructions ?Recorded ?Confirmed methadone 10 mg/mL oral 140 mg PO DAILY 03/15/25 concentrate (Methadone Intensol) Previous Rx's ?Medication ?Instructions ?Recorded cephalexin 500 mg capsule 500 mg PO QID 7 days #28 cap s 03/17/25 doxycycline hyclate 100 mg capsule 100 mg PO BID #14 c aps 03/17/25 mupirocin 2 % topical ointment 1 appl topical TID 7 da ys #22 grams 03/17/25 (Centany) naproxen 500 mg tablet 500 mg PO BID PRN pain #14 t abs 03/17/25 Allergies Allergy/AdvReac Type Severity Reaction Status Date / Time No Known Allergies Allergy Verified 03/20/25 07:35 Review of Systems Constitutional: Constitutional: Reports as per HPI Eyes: Eyes: Reports as per HPI ENT: Reports as per HPI Cardiovascular: Cardiovascular: Reports as per HPI Respiratory: Respiratory: Reports as per HPI Gastrointestinal: Gastrointestinal: Reports as per HPI Genitourinary: Genitourinary: Reports as per HPI Musculoskeletal: Musculoskeletal: Reports as per HPI Integumentary/Breasts: Skin/Breast: Reports as per HPI Neurologic: Reports as per HPI Psychiatric: Psychiatric: Reports as per HPI Endocrine: Endocrine: Reports as per HPI Hematologic/Lymphatic: Hematologic/Lymphatic: Reports as per HPI Allergic/Immunologic: Allergic/Immunologic: Reports as per HPI PMF Past Medical History Attestation statement: The following information was validated with the patient. Source: old records reviewed and nursing notes reviewed Medical History Bipolar 1 disorder Social History Social History Alcohol intake: never Smoked in Last 30 Days: No Use of substances other than those prescribed or required for medical reasons: No Substance Use Type: Marijuana Advance Directives: No Advance Directives Information Provided: No Do you have a plan to hurt others: No Plan Physical Exam ED Vital Signs: Vital Signs - 24 hr 03/20/25 07:34 03/20/25 08:15 Temperature 98 F 98 F Pulse Rate 75 75 Respiratory Rate 16 16 Blood Pressure 125/73 125/73 Pulse Oximetry 100 100 Oxygen Delivery Method Room Air Room Air BMI result Body Mass Index 28.1 Const General: cooperative, no acute distress, alert and awake Nutritional Appearance: well nourished Orientation/consciousness: patient oriented x3 HENMT Head: Yes normal to inspection and Yes atraumatic Ears: hearing grossly normal bilaterally and external ears normal General nose exam: Normal external nose present, no nasal discharge noted and no epistaxis Face and sinus: Yes normal facial exam, No abrasion and No laceration Mouth: Normal oral and palatal mucosa present, no drooling and no muffled voice Eyes General: appearance normal, both eyes and all related structures Periorbital: periorbital findings normal Eyelids: Yes eyelids normal Conjunctivae: conjunctivae normal Pupils: Equal, round and reactive pupils present EOM: EOMs intact bilaterally Neck Neck: Yes normal visual inspection and Yes full ROM Resp Effort & Inspection: normal respiratory effort and able to speak in complete sentences Neuro General: patient oriented x3, moves all extremities and CN's II-XI intact bilaterally Cranial nerves: Yes Equal, round and reactive pupils present Cognition (Neuro): normal cognition Extrem General: Yes normal to inspection, Yes full ROM and Yes capillary refill normal Psych Appearance: grossly normal Mental Status: mental status grossly normal Affect: normal affect Attitude: cooperative Thought process: Normal thought process present Thought content: Normal thought content present Insight: Good insight present (Psych) Medications Administered Discontinued Medications Generic Name Dose Route Start Last Admin Trade Name Freq PRN Reason Stop Dose Admin Naloxone HCl 8 mg 03/20/25 08:02 03/20/25 08:14 Naloxone Hcl Nasal Take Home 4 Mg [place] NOSTRILALT 03/20/25 08:03 Not Given ONCE ONE Medical Decision Making Medical Decision Making [place] Narrative: Patient is a 19 year old male with a history of opiate use disorder, on methadone, presenting to the emergency department today for his methadone dose. Patient's physical exam was as noted in the physical exam portion of this note. I spoke with the addiction team who confirmed it is inappropriate to dose the patient and today and instead to refer him to his methadone clinic for dosing. I explained my physical exam findings to the patient. I answered all questions asked by the patient. I spent an extensive amount of time explaining to the patient why he cannot utilize the ER continually for methadone dosing. He verbalized understanding of this. I stressed the importance of the patient taking his medication as directed (either prescribed or as the over the counter packaging recommends). I stressed the importance of the patient following up with his primary care provider. I stressed the importance of the patient returning to the emergency department immediately if he were to develop any dizziness, shortness of breath, difficulty breathing, chest pain, blurry vision, loss of vision, nausea, vomiting, abdominal pain, fever, chills, back pain, or any other complaints. Patient verbalized agreement and understanding with this treatment plan and discharge. Differential Diagnosis Differential Diagnoses: The differential diagnosis associated with the presentation includes Methadone use Opiate use disorder Admission/Observation Consideration of admission/observation: Escalation of care including admission/observation considered Patient would have been admitted to the hospital had his clinical presentation warranted hospital admission. Consult Healthcare Provider Management of the patient was discussed with: Printed Circuit Board Assembly Repairer (spoke with the addiction team as noted in the MDM Rationale portion of this note. ) Discharge Plan Discharge Clinical Impression: Methadone use Patient Disposition: Home, Self-Care Instructions: Opioid Safety (ED), Opioid Use Disorder (ED) Additional Instructions: You MUST go to a Methadone clinic for your dose. [place] state law mandates that I offer you take home Narcan. Please keep this on you. IF you are prescribed home medications and/or you are taking over the counter medications at home - it is very important you continue to do so as prescribed / directed unless told otherwise. Follow up with a primary care provider. Return to the emergency department immediately if your symptoms worsen or if you develop any numbness, tingling, dizziness, shortness of breath, difficulty breathing, chest pain, blurry vision, loss of vision, nausea, vomiting, abdominal pain, fever, chills, back pain, or any other complaints. If you do not have a primary care provider - call any of the below numbers to establish and follow up with a primary care provider. [facility] Primary Care ([place]) [phone] [place] [address], [address] [facility] Primary Care ([address] [place]) [phone] [place] [address], [address] [facility], [address] [facility] Primary Care ([address] [place]) [phone] [place] [address], [address] [facility], [address] [facility] Primary Care ([place]) [phone] [place] [address] [address] [facility], [address] [facility] Family Medicine [phone] [address] [facility], [address] Please see the information below about our Patient Portal. If you are not yet enrolled in the [facility] Patient Portal, you will receive an enrollment email invitation following your visit to any [facility] setting. You may also self-enroll in the Patient Portal by visiting our website: [email or web address] The following information is required to access the Patient Portal: - Your [facility] Medical Record Number - Your personal home email address (must match what is in your electronic medical record, Registration staff can assist with this) - Name - Date of Capabilities of the Patient Portal: - Message some providers - View upcoming appointments - Access your health summary, medical history, and visit history - View current conditions and allergies - View procedure and lab results - View your medications, including guidelines, side effects, and precautions - Complete pre-appointment questionnaires requested by your provider - Ready summary reports of your office visits and procedures To access the Patient Portal Mobile Morena, follow these directions: - Search Skadoit in the Morena Store or [employer] Avan[employer] Store - Download the Morena - Search for [facility] - Enter your login/password IF you are prescribed home medications and/or you are taking over the counter medications at home - it is very important you continue to do so as prescribed / directed unless told otherwise by a healthcare provider. Follow up with your primary care provider. Do your best to stay well hydrated and rest. Return to the emergency department immediately if your symptoms worsen or if you develop any numbness, tingling, dizziness, shortness of breath, difficulty breathing, chest pain, blurry vision, loss of vision, nausea, vomiting, abdominal pain, fever, chills, back pain, or any other complaints. If you do not have a primary care provider - call any of the below numbers to establish and follow up with a primary care provider. [facility] Primary Care ([place]) [phone] [place] [address], [address] [facility] Primary Care ([address] [place]) [phone] [place] [address], [address] [facility], [address] [facility] Primary Care ([address] [place]) [phone] [place] [address], [address] [facility], [address] [facility] Primary Care ([place]) [phone] [place] [address], [address] [facility], [address] [facility] Family Medicine [phone] [address] [facility], [address] Please see the information below about our Patient Portal. If you are not yet enrolled in the [facility] Patient Portal, you will receive an enrollment email invitation following your visit to any [facility] setting. You may also self-enroll in the Patient Portal by visiting our website: [email or web address] The following information is required to access the Patient Portal: - Your [facility] Medical Record Number - Your personal home email address (must match what is in your electronic medical record, Registration staff can assist with this) - Name - Date of Capabilities of the Patient Portal: - Message some providers - View upcoming appointments - Access your health summary, medical history, and visit history - View current conditions and allergies - View procedure and lab results - View your medications, including guidelines, side effects, and precautions - Complete pre-appointment questionnaires requested by your provider - Ready summary reports of your office visits and procedures To access the Patient Portal Mobile Morena, follow these directions: - Search Skadoit in the Morena Store or [employer] Store - Download the Morena - Search for [facility] - Enter your login/password Prescriptions: No Action methadone [Methadone Intensol] 10 mg/mL Concentrate 140 mg PO DAILY mupirocin [Centany] 2 % ointment 1 appl topical TID 7 Days Qty: 22 0RF cephalexin 500 mg capsule 500 mg PO QID 7 Days Qty: 28 0RF doxycycline hyclate 100 mg capsule 100 mg PO BID Qty: 14 0RF naproxen 500 mg tablet 500 mg PO BID PRN (Reason: pain) Qty: 14 0RF Stand Alone Forms: Work/School Release Interventions: ED Discharge Assessment Last Done: 03/20/25 08:15 Discharge Date/Time: 12/26/25 08:15 Print Language: Polish
--- OUTSIDE RECORDS SUMMARY | 2025-03-20 07:48 | XMS_ITS | Clinical Summary ---
Author Organization [facility] Address [address] [place] [address] Phone Care Team Providers Care Business Applications Manager Name Role Phone Kim Carranza NP Primary Care Provider [phone] Allergies No known active allergies Medications amphetamine-dextro [...] Apply qam 30 g 3 3 Active Ketoconazole-[place] cortisone (Pheyo) 2-2.5 % creamIndications:T inea versicolor [...] mom says she is talking to his reserve officer. Mom is 100% sure he is on other drugs. Urged mom to talk to the reserve officer and DCF. Will also talk with [...] 51A- 08/20/20 Update given to Mally ward [facility] 03/02/21 Now is a single father, [...] disorder) 04/26/2015 Overview (03/15/2021): Historically managed by [facility] team - therapist and Rx prescriber [...] Type Department Care Team Description 03/02/2025 Telephone [place] [facility] - [address] [id number] Kayley Cerna LPN Discharge Follow-Up - ED [...] Completed 03/16/2021, 020 Procedures * Due to [place] [employer] law, this organization might not be sharing [...] to Health Maintenance Results * Due to [place] [employer] law, this organization might not be sharing sensitive test results. * (ABNORMAL) Chlamydia and Gonorrhoea, Amplified (03/29/2022 10:24 AM EST) Chlamydia Trachomatis, DNA Probe POSITIVE( A) (NEG) [facility] Comment: Chlamydia Trachomatis RNA detected in this patient's sample (REFERENCE RANGE/NORMAL VALUE: NOT DETECTED) Result reported to the [facility]. Note: This test uses senior warehouse clerk- mediated amplification method to detect rRNA from C. Trachomatis URINE GC AMP PROBE POSITIVE( A) (NEG) [facility] Comment: Neisseria Gonorrhoeae RNA detected in this patient's sample (REFERENCE RANGE/NORMAL VALUE: NOT DETECTED) Result reported to the [facility]. NOTE: This test uses senior warehouse clerk-mediated amplification method to detect rRNA from N.Gonorrhoeae. [...] without risk of sexual abuse. Consult the [facility] if needed. Contact phone number . Therapeutic failure or success cannot be determined with the Aptima Combo2 assay since nucleic acid may persist following appropriate antimicrobial therapy. The Centers for Disease Control and Prevention (CDC) recommends confirmatory retesting using culture or a different nucleic acid amplification test when positive results occur, if indicated. Testing performed or reported by [facility], a Service of [facility], [address], [place] [address] Pedro Carlson MD, Financial Sales Associate [facility]# [id number] Urine (Urine) 03/29/2022 10: 24 AM EST 03/30/2022 9:04 AM EST us Raffi Willams MD LAB MICROBIOLOGY - GENERAL OR DERABLES Final Result [facility] * Hepatitis C Antibody (03/16/2021 12:20 PM EST) Hepatitis C Ab Interpretation NEGATIVE (NEG) [facility] Comment: Reference range: Negative This test was performed on the Gerard Martial Arts Instructor immunoassay system. Testing performed or reported by [facility], a Service of [facility], [facility] [place] [address] Pedro Carlson MD, Financial Sales Associate [facility]# [id number] Blood 03/16/2021 12:2 0 PM EST 03/16/2021 12:26 PM EST Ena Benson MD LAB BLOOD ORDERABLES Final Re sult Performing Organization Address [facility] Number [facility] * RPR (03/16/2021 12:20 PM EST) Pathologist [facility] [place] SYPHILIS SCREEN BY DOROTEO NEGATIVE (NEG) [facility] Comment: Reference range: Negative This test was performed on the Gerard Martial Arts Instructor immunoassay system. RPR Titer NOT INDICATED [facility] T pallidum Antibodies (TP-PA) NOT INDICATED [facility] SYPHILIS INTERPRETATION Indicative of the absence of infection with Treponemal pallidum. Test may be negative in cases of incubating or early primary syphilis. Consider repeat testing in several weeks if clinical suspicion is high. [facility] Comment: Testing performed or reported by [facility], a Service of [facility], [address] [place] [address] Pedro Carlson MD, Financial Sales Associate [facility]# [id number] Blood (Blood, Venous) 03/16/2021 12:20 PM EST 03/16/2021 12:26 PM EST Ena Benson MD LAB BLOOD ORDERABLES Final Re sult Performing Organization Address [facility] de Phone Number [facility] from Last 3 Months or Most Recently Relevant to Health Maintenance Insurance [place] [address] [facility] [place] [id number] Care Teams Business Applications Manager Relationship Specialty Start Date End Date Kim Carranza NP [address] [place] [address] PCP - General Pediatrics 08/21/24
--- OUTSIDE RECORDS SUMMARY | 2025-03-20 07:48 | XMS_ITS | Encounter Summary ---
Author Organization [facility] Address [address] [place] [id number] Phone Care Team Providers Care Swaging Machine Operator Name Role Phone Kim Carranza NP Primary Care Provider [phone] Encounter Details Date Type Department Care Team (Late st Contact Info) Description 12/16/2009 Documentation [facility] Family Medicine [address] [place] [address] Family Medicine, Physician [address] [place], [place] [id number] Social History Tobacco Use Types Packs/Day Years [...] on filedocumented in this encounter Care Teams Swaging Machine Operator Relationship Specialty Start Date End Date Kim Carranza NP [address] [place] [address] PCP - General Pediatrics 08/21/24 documented as of this encounter
--- OUTSIDE RECORDS SUMMARY | 2025-03-20 07:48 | XMS_ITS | Encounter Summary ---
Author Organization [facility] Address [address] [place] [address] Phone Care Team Providers Care Crew Leader/Control Room Operator Name Role Phone Kim Carranza NP Primary Care Provider [phone] Encounter Details Date Type Department Care Team (Late st Contact Info) Description 12/16/2009 Documentation [facility] Family Medicine [address] [place] [address] Family Medicine, Physician [address] [place], [place] [id number] Social History Tobacco Use Types Packs/Day Years [...] on filedocumented in this encounter Care Teams Crew Leader/Control Room Operator Relationship Specialty Start Date End Date Kim Carranza NP [address] [place] [address] PCP - General Pediatrics 08/21/24 documented as of this encounter
--- OUTSIDE RECORDS SUMMARY | 2025-03-20 07:48 | XMS_ITS | Clinical Summary ---
Author Organization [employer] [facility] it Address [address] [place] [address] Care Team Providers Care Funnel Setter Name Role Phone Unavailable Primary Care Provider [...]
--- OUTSIDE RECORDS SUMMARY | 2025-03-20 07:48 | XMS_ITS | Encounter Summary ---
Author Organization [facility] Address [address] [place] [id number] Phone Care Team Providers Care Pediatric Critical Care Nurse Name Role Phone Kim Carranza NP Primary Care Provider [phone] Encounter Details Date Type Department Care Team (Late st Contact Info) Description 11/09/2016 Conversion Encounter [facility] [address] [place] [address] Social History Tobacco Use Types Packs/Day Years [...] on filedocumented in this encounter Care Teams Pediatric Critical Care Nurse Relationship Specialty Start Date End Date Kim Carranza NP [address] [place] [address] PCP - General Pediatrics 08/21/24 documented as of this encounter
--- NOTE | 2025-03-20 08:13 | PC.NURSE ---
Attempted to give pt take home narcans on d/c- pt refused stated I don't need those, I don't do drugs anymore. Daya GUILLORY made aware. Pt d/c- ambulated out of ED with steady gait on RA.
[2025-03-20 08:15] VITALS: BP 125/73; PULSE 75; RESP 16; TEMP 36.6; O2SAT 100
== END 2025-03-20 08:15 | disposition home or self-care (01) ==
PROVIDERS: Emergency Provider Emergency Medicine
DX: F11.90 Opioid use, unspecified, uncomplicated (principal)
CPT/HCPCS: 99282; 99284